=== PATIENT | male | born 1955 | race Caucasian/White ===

== ENCOUNTER → 2021-04-09 11:10 | Outpatient (BNVA) | payer MEDICARE, SELFPAY | PROVIDERS: Visit Provider Urology | DX: N40.0 Benign prostatic hyperplasia without lower urinary tract symptoms (principal); R39.15 Urgency of urination | CPT/HCPCS: 51798; 99212 ==

== ENCOUNTER 2024-01-14 14:44 | Outpatient (REF) | payer MEDICARE, SELFPAY ==
[2024-01-14 15:28] LABS: Prothrombin Time 11.9 SEC (11.1-13.3)
[2024-01-14 16:12] LABS: Anion Gap 13 (12-20); Blood Urea Nitrogen 17 mg/dL (9-16); Calcium 9.7 mg/dL (8.4-10.2); Carbon Dioxide 25 mmol/L (22-29); Chloride 97 mmol/L (96-108); Estimated Glomerular Filt Rate > 60; Glucose Random 179 mg/dL (60-115); Sodium 130 mmol/L (135-145)
== END 2024-01-14 14:45 | disposition home or self-care (01) ==
LOC: HO.LAB 14:44
PROVIDERS: Visit Provider Psychiatry & Neurology Neurology
DX: G91.2 (Idiopathic) normal pressure hydrocephalus (principal)
CPT/HCPCS: 36415; 80048; 85610

== ENCOUNTER 2024-02-05 09:19 | Day surgery (SDC) | payer MEDICARE, SELFPAY ==
--- NOTE | ~2024-02-05 | FL_ITS ---
FLUOROSCOPIC GUIDED LUMBAR PUNCTURE INDICATION: Normal pressure hydrocephalus Risks and benefits and possible complications were discussed with the patient and his daughter and the consent form was signed. Patient was placed prone on the fluoroscopy table. The back was prepped and draped in routine sterile fashion. Betadine was used as a skin antiseptic. Utilizing fluoroscopic guidance, the L5-S1 level interlaminar space was accessed with a 22 gauge Michael spinal needle and pink-tinged CSF fluid was obtained. Opening pressure was 11 cm. Only 3 mL of CSF could be obtained until CSF flow completely stopped despite multiple attempts to reposition the needle. Next, the L4-L5 interlaminar level was accessed with a 22-gauge quincke spinal needle and pink-tinged CSF was obtained. An additional 4.5 mL cc of fluid was sent for analysis. The needle was removed without immediate complications. Total fluoroscopy time: 1 minute 39 seconds FL/FL guided lumbar puncture LP IMPRESSION: Successful fluoroscopic lumbar puncture This procedure was performed by Jese Norris PA-C and supervised by Dr. Aguila.
[2024-02-05 10:03] VITALS: BMI 28.2
[2024-02-05 10:11] LABS: MANUAL DIFF FLAG NO
[2024-02-05 10:14] LABS: Basophils Percent Auto 0.4 % (0-2); Eosinophils Absolute Auto 0.1 X10*3/uL (0.0-0.4); Eosinophils Percent Auto 0.8 % (0-4); Hematocrit 37.8 % (42.0-52.0); Imm Gran Abs Auto 0.03 X10*3/uL (0.00-0.03); Imm Gran Pct Auto 0.4 % (0.0-0.4); Lymphocytes Absolute Auto 0.9 X10*3/uL (1.2-4.9); Lymphocytes Percent Auto 10.7 % (20-40); Mean Corpuscular HGB Conc 34.4 g/dl (31.0-36.0); Mean Corpuscular Volume 87.3 fL (80.0-98.0); Monocytes Absolute Auto 0.7 X10*3/uL (0.1-1.2); Monocytes Percent Auto 8.1 % (2-11); Neutrophils Absolute Auto 6.7 x10*3/uL (2.0-8.3); Neutrophils Percent Auto 79.6 % (45-73); Platelet Count 212 X10*3/uL (160-400); Red Blood Count 4.33 X10*6/uL (4.60-5.80); Red Cell Distribution Width 11.9 % (11.0-16.0); White Blood Count 8.4 X10*3/uL (4.8-10.8)
[2024-02-05 10:37] LABS: Glucose, Whole Blood 162 mg/dL (60-115)
[2024-02-05 13:00] VITALS: BP 129/69; PULSE 74; RESP 17; TEMP 36.6; O2SAT 97
[2024-02-05 13:15] VITALS: BP 154/80; PULSE 72; RESP 18; O2SAT 100
[2024-02-05 13:30] VITALS: BP 152/78; PULSE 72; RESP 18; O2SAT 100
[2024-02-05 13:45] VITALS: BP 154/80; PULSE 71; RESP 18; O2SAT 100
[2024-02-05 13:53] LABS: CSF Appearance Bloody; CSF Tube # 2
[2024-02-05 13:56] VITALS: BP 171/93; PULSE 70; RESP 18; TEMP 36.2; O2SAT 100
[2024-02-05 14:08] LABS: Glucose CSF 105 mg/dL; Total Protein CSF 189.3 mg/dL (15-45)
[2024-02-05 14:25] LABS: Appearance CSF CLOUDY; CSF Monos 1 %; CSF Tube # 4; Color CSF RED; Lymphocytes CSF 11 %; Neutrophils CSF 88 %
[2024-02-05 14:26] LABS: Red Blood Cell CSF 12075 MM*3; White Blood Cell CSF 36 MM*3
--- NOTE | 2024-02-05 14:36 | PC.NURSE ---
this rn recieved call from lab of critical lab value wbc of 36 on patient that was d/c home at 1400. Both Paulo Norris and rebecca Foster notified. I called [place] [facility] left message with office personal and tiger texted dr foster.
== END 2024-02-05 14:00 | disposition home or self-care (01) ==
PROVIDERS: Physician Assistant Surgical; Visit Provider Psychiatry & Neurology Neurology
PROC: 009U3ZZ Drainage of Spinal Canal, Percutaneous Approach (ICD-10-PCS; CPT 62270; principal; 2024-02-05 11:00)
DX: G91.2 (Idiopathic) normal pressure hydrocephalus (principal); E11.9 Type 2 diabetes mellitus without complications
CPT/HCPCS: 36415; 62328; 82945; 82947; 84157; 85025; 87015; 87070; 87205; 89051

== ENCOUNTER → 2024-02-05 11:21 | Outpatient (BNV) | payer MEDICARE, SELFPAY | PROVIDERS: Visit Provider Physician Assistant Surgical | DX: G91.2 (Idiopathic) normal pressure hydrocephalus (principal) | CPT/HCPCS: 62328 ==

== ENCOUNTER 2024-02-08 10:45 | Outpatient (REF) | payer MEDICARE, SELFPAY ==
[2024-02-09 05:05] LABS: Syphilis Screen Nonreactive (Nonreactive)
[2024-02-09 19:58] LABS: Lyme Abs Screen <0.90 index
== END 2024-02-08 10:46 | disposition home or self-care (01) ==
LOC: HO.LAB 10:45
PROVIDERS: Visit Provider Psychiatry & Neurology Neurology
DX: R26.89 Other abnormalities of gait and mobility (principal)
CPT/HCPCS: 36415; 86617; 86618; 86780

== ENCOUNTER 2025-07-27 14:13 | Outpatient (AMB) | payer MEDICARE, SELFPAY ==
--- OUTSIDE RECORDS SUMMARY | 2025-07-23 23:59 | XMS_ITS | Continuity of Care Document ---
Author Organization [facility] y Address [address] [place] [address]- Care Team Providers Care Quantitative Equity Head Name Role Phone Khari Vargas MD Primary Care Physician Encounter [facility] Date(s): 06/23/25 - 07/23/25 [facility] [address] [place], [place] [address] Attending Physician: Deanna Odell Admitting Physician: AdmtrDeanna Referring Physician: Admtr ArLilia Encounter Type: Triage Allergies, Adverse Reactions, Alerts No Known Allergies Immunizations Given and Recorded Vaccine Date Status Refusal Reason SARS-CoV-2 (COVID-19) mRNA BNT-162b2 vac 08/02/21 Given SARS-CoV-2 (COVID-19) mRNA BNT-162b2 vac 07/05/21 Given pneumococcal 23-valent vaccine 04/12/21 Given influenza virus vaccine, inactivated 10/11/20 Tyrell rded influenza virus vaccine, inactivated 11/04/18 Give n influenza virus vaccine, inactivated 10/08/17 Give n influenza virus vaccine, inactivated 09/20/14 Tyrell rded influenza virus vaccine, inactivated 09/16/13 Tyrell rded pneumococcal 13-valent vaccine 03/17/19 Given tetanus/diphtheria/pertussis, acel(Tdap) 11/04/18 Given Medications aspirin 81 mg oral delayed release tablet 81 mg, By Mouth, Daily, do not crush or chew, # 90 tablet, Refills 3, Tot. Refills 3, Maintenance, 01/18/24 1:22:00 PM EST, Route to Pharmacy Electronically, [facility]/pharmacy #[id number], Partial fill upon patient request if the prescription is for a schedule II opioid drug., 178, cm, 01/06/24 9:52:00 EST, Height, 88.5, kg, 01/10/23 18:29:00 EST, Dry Weight Start Date: 01/18/24 Stop Date: 05/17/24 Status: Ordered Quantity: 90.0 Unit: tablet Repeat number: 4 atorvastatin 40 mg oral tablet 1 tablet = 40 mg, By Mouth, Daily, # 90 tablet, 3 Refills, Maintenance, 01/18/24 1:19:00 PM EST, Tablet, [facility]/pharmacy #[id number], Partial fill upon patient request if the prescription is for a schedule II opioid drug., 178, cm, 01/06/24 9:52:00 EST, Height, 88.5, kg, 01/10/23 18:29:00 EST, Dry Weight Start Date: 01/18/24 Status: Ordered Quantity: 90.0 Unit: tablet Repeat number: 4 diclofenac 1% topical gel 1 application, Topically, 4 times a day, # 100 Gm, 2 Refills, Maintenance, 11/09/24 10:04:00 AM EST, Gel, [facility]/pharmacy #[id number], Partial fill upon patient request if the prescription is for a schedule II opioid drug., 178, cm, 10/17/24 15:56:00 EST, Height, 88.5, kg, 01/10/23 18:29:00 EST, Dry Weight Start Date: 11/09/24 Status: Ordered Quantity: 100.0 Unit: g Repeat number: 3 Lidoderm 5% film 2 patch, Topically, Daily, remove patches after 12 hours, # 30 patch, 11 Refills, Maintenance, 04/20/24 1:57:00 PM EDT, Film, [facility]/pharmacy #[id number], Partial fill upon patient request if the prescription is for a schedule II opioid drug., 2 patch Topically Daily,Instr:remove patches after 12 hours, 178,cm, 04/20/24 13:20:00 EDT, Height, 88.5, kg, 01/10/23 18:29:00 EST, Dry Weight Start Date: 04/20/24 Status: Ordered Quantity: 30.0 Unit: patch Repeat number: 12 lisinopril 2.5 mg oral tablet 1, tablet, By Mouth, Daily, # 90 tablet, Refills 0, Tot. Refills 0, Maintenance, 07/22/25 8:55:00 AMEDT, Route to Pharmacy Electronically, [facility]/pharmacy #[id number], 178, cm, 07/21/25 16:57:00 EDT, Height Start Date: 07/22/25 Status: Ordered Quantity: 90.0 Unit: tablet Repeat number: 1 metFORMIN 1000 mg oral tablet 1 tablet, By Mouth, 2 times a day, # 180 tablet, 1 Refills, Maintenance, 01/12/25 12:00:00 PM EST, [id number], 178, cm, 10/17/24 15:56:00 EST, Height Start Date: 01/12/25 Status: Ordered Quantity: 180.0 Unit: tablet Repeat number: 1 Senexon-S 50 mg-8.6 mg oral tablet 2 tablet, By Mouth, Daily at bedtime, PRN IF NEEDED FOR CONSTIPATION, # 60 tablet, 0 Refills, Maintenance, 07/14/24 9:57:00 AM EDT, [id number], 30, TAKE 2 TABLETS BY MOUTH DAILY AT BEDTIME IF NEEDED FOR CONSTIPATION, 178, cm, 04/20/24 13:20:00 EDT, Height, 88.5, kg, 01/10/23 18:29:00 EST, Dry Weight Start Date: 07/14/24 Status: Ordered Quantity: 60.0 Unit: tablet Repeat number: 1 Shower Chair with Back and Arm Handles Shower Chair with Back and Arm Handles, See Instructions, # 1 each, Refills 0, Tot. Refills 0, Maintenance, Use as directed to assist with showering/bathing PT NEEDS TO SIT TO SHOWER RELATED TO RISK OF FALLS Dx: R42, Z74.09 Duration: Lifetime, 12/04/23 10:08:00 AM EST, Supply Start Date: 12/04/23 Status: Ordered Quantity: 1.0 Unit: each Repeat number: 1 Trulicity Pen 0.75 mg/0.5 mL subcutaneous solution 0.5 mL = 0.75 mg, Subcutaneous Injection, Every week, rotate injection sites, # 2 mL, 5 Refills, Maintenance, 07/21/25 6:03:00 PM EDT, Solution, [id number], Partial fill upon patient request if the prescription is for a schedule II opioid drug., 178, cm, 07/21/25 16:57:00 EDT, Height Start Date: 07/21/25 Status: Ordered Quantity: 2.0 Unit: mL Repeat number: 6 Indications: Type 2 diabetes mellitus without complications; Walker Walker, See Instructions, # 1 each, Refills 0, Tot. Refills 0, Maintenance, Use as directed to assist with ambulation Dx: R42, Z74.09 Duration: Lifetime, 12/04/23 10:08:00 AM EST, Supply Start Date: 12/04/23 Status: Ordered Quantity: 1.0 Unit: each Repeat number: 1 Problem List Condition Confirmation Course Effective Dates Status Health Status Informant Testicular abscess Confirmed Active BPH (benign prostatic hyperplasia) Confirmed Active Chronic low back pain Confirmed Active Mixed vascular and neurodegenerative dementia Confirmed Active Diabetes Mellitus Confirmed Active Hx of prostatectomy Confirmed Active History of orchiectomy Confirmed Active HLD (hyperlipidemia) Confirmed Active Neural foraminal stenosis of lumbar spine Confirmed Active Social History Social History Type Response Smoking Status Never (less than 100 in lifetime) entered on: 04/25/21 Sex Sex Representation Male (finding) Patient Care team information Care Team Personnel Name: Layla Hoff RN Position: [facility] SN RN Member Role: Primary Care Nurse Name: Khari Vargas MD Position: [facility] Resident Member Role: PCP Address: [address] [place] [address] Telecom: Name: Stephanie Webb LPN Position: S RN Member Role: Primary Care Nurse Care Team Related Persons Name: NIDIA CHESTER Name: NIDIA CHESTER Name: RUSTAM CHESTER Name: SOPHIA CHESTER Insurance Providers Guarantor name: SHANNON AvokiaDWIGHT Health Plan Information #: 1 Payer: [employer] Payer Identifier: NA Member Number: [id number] Group Number: [id number] Subscriber Identifier: [id number] Relationship to Subscriber: self Coverage Type: Medicare HMO Coverage Verification Date: NA Telecom: NA Address:
--- OUTSIDE RECORDS SUMMARY | 2025-07-23 23:59 | XMS_ITS | Continuity of Care Document ---
Author Organization [facility] Address [address] [place] [address]- Care Team Providers Care Legislative Correspondent Name Role Phone Alicia BLAND, Khari Primary [id number] Date([facility] - 07/23/25 [facility] [address] [place], [place] [address] Attending Physician: Not on Staff, Attending MD Admitting Physician: Not on Staff, Admitting MD Referring Physician: Melania Pritchett MD Encounter Type: Pre-OutPatient One Time Allergies, Adverse Reactions, Alerts No Known Allergies [...] 1:22:00 PM EST, Route to Pharmacy Electronically, [facility]/pharmacy #[id number], Partial fill upon patient request if [...] Refills, Maintenance, 01/18/24 1:19:00 PM EST, Tablet, [facility]/pharmacy #[id number], Partial fill upon patient request if the prescription is for a schedule II opioid drug., 178, cm, 01/06/24 9:52:00 EST, Height, 88.5, kg, 01/10/23 18:29:00 EST, Dry Weight Start Date: 01/18/24 Status: Ordered Quantity: 90.0 Unit: tablet Repeat number: 4 diclofenac 1% topical gel 1 application, Topically, 4 times a day, # 100 Gm, 2 Refills, Maintenance, 11/09/24 10:04:00 AM EST, Gel, [facility]/pharmacy #1130, Partial fill upon patient request if [...] Refills, Maintenance, 04/20/24 1:57:00 PM EDT, Film, [facility]/pharmacy #1130, Partial fill upon patient request if [...] 07/22/25 8:55:00 AMEDT, Route to Pharmacy Electronically, [facility]/pharmacy #[id number], 178, cm, 07/21/25 16:57:00 EDT, Height Start Date: 07/22/25 Status: Ordered Quantity: 90.0 Unit: tablet Repeat number: 1 metFORMIN 1000 mg oral tablet 1 tablet, By Mouth, 2 times a day, # 180 tablet, 1 Refills, Maintenance, 01/12/25 12:00:00 PM EST, [id number], 178, cm, 10/17/24 15:56:00 EST, Height Start Date: 01/12/25 Status: Ordered Quantity: 180.0 Unit: tablet Repeat number: 1 Senexon-S 50 mg-8.6 mg oral tablet 2 tablet, By Mouth, Daily at bedtime, PRN IF NEEDED FOR CONSTIPATION, # 60 tablet, 0 Refills, Maintenance, 07/14/24 9:57:00 AM EDT, [facility], 30, TAKE 2 TABLETS BY MOUTH DAILY [...] Team Personnel Name: Layla Hoff RN Position: [facility] SN RN Member Role: Primary Care Nurse Name: Khari Vargas MD Position: [facility] Resident Member Role: PCP Address: [address] [place] [address] Telecom: Name: Stephanie Webb LPN Position: S RN Member Role: Primary Care Nurse Care Team Related Persons Name: NIDIA CHESTER Name: NIDIA CHESTER Name: RUSTAM CHESTER Name: SOPHIA CHESTER Insurance Providers Guarantor name: SHANNON WALTER Health Plan Information #: 1 Payer: [employer] Payer Identifier: NA Member Number: [id number] Group Number: [id number] Subscriber Identifier: [id number] Relationship to Subscriber: self Coverage Type: Medicare HMO Coverage Verification Date: NA Telecom: NA Address:
--- NOTE | 2025-07-27 14:18 | A.OFFVIS_ITS ---
Intake Visit Reasons: Follow Up Allergies No Known Allergies (No Known Allergies*) Allergy (Verified 04/09/21 11:19) HPI Comments Details: 69 yo man with difficuly walking and balancing, dizziness, forgetfulness, and difficulty controlling urination started around 2021. His daughter stated that he had an LP done at [facility] in 2021 afer which he improved for a little while but he never saw a surgeon afterwards. He contined to [place], had an MRI of brain in Oct and was sent here for consultation.?He had the LP in 2023 but no improvement from it was noted. LP was bloody probably from a traumatic tap, as he was not ill otherwise. He is presenting with chronic back pain and associated neurologic symptoms. The condition has been primarily characterized by persistent back pain radiating to the legs, impairing mobility and leading to an inability to perform routine tasks such as climbing stairs. The intensity and chronic nature of the pain have alleviated his tolerance to standing and sitting, impacting his quality of life. There is an ongoing concern of potential neuropathy, given the radiation of pain and decreased sensation in the legs. Previous treatments with Tylenol and gabapentin were ineffective, and due to his diabetes, caution is necessary with pain management medications that may impact kidney function. The patient is also dealing with depression as a result of his chronic pain. Diagnostic evaluations have included a nerve test, and a brain MRI is scheduled to assess neurological contributors. A back MRI is planned depending on insurance approval. Naproxen has been proposed to help alleviate pain within the constraints of his current medication regimen. [facility] Medical History (Updated 07/27/25 @ 14:29 by Michael Foster MD) Peripheral neuropathy Osteoarthritis Multifactorial gait disorder NPH (normal pressure hydrocephalus) Depression Diabetes mellitus, type II Urinary incontinence Weak urinary stream Hydronephrosis Epididymo-orchitis BPH (benign prostatic hyperplasia) Neurogenic bladder H/O urinary retention Surgical History (Updated 04/09/21 @ 11:21 by KENTRELL Collins) History of surgery Review of Systems Const Details: - Musculoskeletal: Reports chronic back pain with radiation to the legs, affecting mobility. - Neurological: Reports fear of losing sensation in the legs; difficulty standing and walking. - Psychological: Reports feeling very depressed due to the pain. - General: Reports inability to climb stairs. Assessment & Plan Assessment & Plan (1) NPH (normal pressure hydrocephalus): Comment: EMG/NCS LEs at [place] in 2023: b/l lower lumbar rad, mild b/l peroneal neuropathy MRI brain WO at [facility] in Oct 2023: Ventriculomegaly, mild atrophy and mild MVD, pansiusitis [place] [facility] [place]: [place] tinged CSF, WBCs 36 (88% neutrophills), RBCs 45165, Glu 105, Pro 189. Code(s): G91.2 - (Idiopathic) normal pressure hydrocephalus Category: Medical (2) Lumbar radicular pain: Code(s): M54.16 - Radiculopathy, lumbar region Category: Medical Plan Impression: a; NPH, exam worse than before b: Chronic intractable back pain Rec: a: MRI brain WO b: EMG/NCS legs c: Naproxen 500mg 1-2 a day as needed During the visit, I discussed the patient?s chronic back pain and the associated neurologic symptoms, which appear progressively debilitating. It was agreed that Naproxen might help manage pain, though I cautioned about its kidney impact due to the patient's diabetic condition. I have suggested alternative pain management strategies should Naproxen prove unsuitable. Orders: Orders NE nerve conduction velocity Today M54.16 - Radiculopathy, lumbar region NE electromyogram (EMG) Today M54.16 - Radiculopathy, lumbar region MR head/brain wo con Today G91.2 - (Idiopathic) normal pressure hydrocephalus Medications: New naproxen 500 mg PO BID PRN 60 tabs 0RF pain Coding Level of Care Code Est Pt Level 4 (30686) Diagnoses NPH (normal pressure hydrocephalus) G91.2 Lumbar radicular pain M54.16
--- OUTSIDE RECORDS SUMMARY | 2025-07-27 15:00 | XMS_ITS ---
[facility] Care Team Organization Name Specialty Phone Email Start Date End Da te [facility] KOFFI NAILS Primary Care 10/07/2022 07/18/20 24
== END 2025-07-27 14:39 | disposition home or self-care (01) ==
PROVIDERS: Visit Provider Psychiatry & Neurology Neurology
DX: G91.2 (Idiopathic) normal pressure hydrocephalus (principal); M54.16 Radiculopathy, lumbar region
CPT/HCPCS: 99214

== ENCOUNTER → 2025-07-27 14:13 | Outpatient (BNVA) | payer MEDICARE, SELFPAY | PROVIDERS: Visit Provider Psychiatry & Neurology Neurology | DX: G91.2 (Idiopathic) normal pressure hydrocephalus (principal); M54.16 Radiculopathy, lumbar region; R42 Dizziness and giddiness; R26.9 Unspecified abnormalities of gait and mobility | CPT/HCPCS: 99212 ==

== ENCOUNTER 2025-08-02 14:02 | Outpatient (REF) | payer MEDICARE, SELFPAY ==
--- NOTE | 2025-08-02 16:45 | EMG_ITS ---
Chief complaint: Lumbar Radiculopathy Reason for referral: back pain Referred by: Dr Foster Procedure done: Nerve conduction study of the lower extremities with EMG Bilateral tibial and peroneal motor studies were performed bilateral superficial peroneal and sural sensory studies were performed tibial H reflexes were obtained and EMG needle examination was performed. Impression: Moderately severe axonal sensory motor chronic peripheral neuropathy MTDD
== END 2025-08-02 14:03 | disposition home or self-care (01) ==
LOC: HO.NEURO 14:02
PROVIDERS: Visit Provider Psychiatry & Neurology Neurology
DX: M54.16 Radiculopathy, lumbar region (principal); G62.9 Polyneuropathy, unspecified
CPT/HCPCS: 95886; 95911

== ENCOUNTER → 2025-08-02 16:45 | Outpatient (BNV) | payer MEDICARE, SELFPAY | PROVIDERS: Visit Provider Psychiatry & Neurology Neurology | DX: G62.89 Other specified polyneuropathies (principal) | CPT/HCPCS: 95886; 95911 ==

== ENCOUNTER → 2025-08-30 12:31 | Outpatient (BNVA) | payer MEDICARE, SELFPAY | PROVIDERS: Visit Provider Psychiatry & Neurology Neurology | DX: Z71.2 Person consulting for explanation of examination or test findings (principal); M54.16 Radiculopathy, lumbar region; G62.9 Polyneuropathy, unspecified; R26.89 Other abnormalities of gait and mobility | CPT/HCPCS: 99212 ==

== ENCOUNTER → 2025-08-30 12:31 | Outpatient (AMB) | payer MEDICARE, SELFPAY ==
--- NOTE | 2025-08-30 12:54 | A.OFFVIS_ITS ---
Intake Visit Reasons: ncv results Allergies No Known Allergies (No Known Allergies*) Allergy (Verified 04/09/21 11:19) HPI Comments Details: 69 yo man with difficuly walking and balancing, dizziness, forgetfulness, and difficulty controlling urination started around 2021. His daughter stated that he had an LP done at [facility] in 2021 afer which he improved for a little while but he never saw a surgeon afterwards. He contined to [place], had an MRI of brain in Oct and was sent here for consultation.?He had the LP in 2023 but no improvement from it was noted. LP was bloody probably from a traumatic tap, as he was not ill otherwise. [facility] Medical History (Updated 08/30/25 @ 12:59 by Michael Foster MD) Peripheral neuropathy Osteoarthritis Multifactorial gait disorder NPH (normal pressure hydrocephalus) Depression Diabetes mellitus, type II Urinary incontinence Weak urinary stream Hydronephrosis Epididymo-orchitis BPH (benign prostatic hyperplasia) Neurogenic bladder H/O urinary retention Surgical History (Updated 04/09/21 @ 11:21 by KENTRELL Collins) History of surgery Assessment & Plan Assessment & Plan (1) NPH (normal pressure hydrocephalus): Comment: MG/NCS LEs at [facility] in Jun 2024: Mod axonal SM PN EMG/NCS LEs at [facility] in 2023: b/l lower lumbar rad, mild b/l peroneal neuropathy MRI brain WO at [facility] in Oct 2023: Ventriculomegaly, mild atrophy and mild MVD, pansiusitis LP at [facility] in Jan 2024: [place] tinged CSF, WBCs 36 (88% neutrophills), RBCs 68391, Glu 105, Pro 189. Code(s): G91.2 - (Idiopathic) normal pressure hydrocephalus Category: Medical (2) Lumbar radicular pain: Code(s): M54.16 - Radiculopathy, lumbar region Category: Medical (3) Peripheral neuropathy: Code(s): G62.9 - Polyneuropathy, unspecified Category: Medical Qualifiers: Peripheral neuropathy type: polyneuropathy, unspecified Qualified Code(s): G62.9 - Polyneuropathy, unspecified Plan Impression: a: Multifactorial gait disorder b: Moderate SM axonal peripheral neuropathy c: NPH, had an MRI recently at [facility] Rec: a: PT/OT b: F/u in this office in a few weeks when he is better with CD of this [facility] MRI Coding Level of Care Code Tele Est Pt Level 4 (93707) Diagnoses NPH (normal pressure hydrocephalus) G91.2 Lumbar radicular pain M54.16 Peripheral polyneuropathy G62.9 Peripheral neuropathy type: polyneuropathy, unspecified
--- OUTSIDE RECORDS SUMMARY | 2025-08-30 13:52 | XMS_ITS | Clinical Summary ---
Author Organization [address] [facility] Address [address] [place] [address] Phone Care Team Providers Care Supervisor [employer] Name Role Phone Radha Bush MD Primary Care Provider + Encounters Date Type Department Care Team Description 08/30/[address] [facility] - Main Lab [address] [place] [address] Radha Bush MD Weakness; Type 2 diabetes mellitus without complications (CMS/HCC V24, CMS/HCC V28) from Last 3 Months Social History Tobacco Use Types Packs/Day Years Used Date Smoking Tobacco: Never Assessed Sex and Gender Information Value Date Recorded Sex Assigned at Not on file Legal Sex Male 2:37 PM EST Gender Identity Not on file Sexual Orientation Not on file Plan of Treatment Health Maintenance Due Date Last Done Comments Colorectal Cancer Screening: Colonoscopy 1953 Diabetes: Annual Foot Exam 1963 Diabetes: Annual Retina Eye Exam 1963 DTaP,Tdap,and Td Vaccines (1 - Tdap) 1972 Pneumococcal Vaccine: 50+ Ye ars (1 of 2 - PCV) 1972 Zoster Vaccines (1 of 2) 2003 Abdominal Aortic Aneurysm (A AA) Screen 01/17/2023 Cholesterol Screening (Lipid Panel) 01/17/2023 Falls Risk Assessment 01/17/2023 Hepatitis C Screening 01/17/2023 Medicare Annual Wellness Visit 01/17/2023 Social Influencers of Health Screening 01/17/2023 Depression Screening 11/30/2024 COVID-19 Vaccine (1 - 2023-2 5 season) 2025 Influenza Vaccine (#1) 2025 Diabetes: Annual Urine Albumin-Creatinine Ratio (uACR) 08/30/2025 Diabetes: Blood Sugar Contro l Test (HGBA1C) 08/30/2025 08/30/2025 Diabetes: Annual GFR (Glomer ular Filtration Rate) 08/30/2026 08/30/2025 RSV Immunization Adult Patie nts (1 - 1-dose 75+ series) 2028 HIB Vaccines Aged Out No longer eligi ble based on patient's age to complete this topic HPV Vaccines Aged Out No longer eligi ble based on patient's age to complete this topic Hepatitis A Vaccines Aged Out No long er eligible based on patient's age to complete this topic Hepatitis B Vaccines Aged Out No long er eligible based on patient's age to complete this topic IPV Vaccines Aged Out No longer eligi ble based on patient's age to complete this topic MMR Vaccines Aged Out No longer eligi ble based on patient's age to complete this topic Meningococcal ACWY Vaccine Aged Out N o longer eligible based on patient's age to complete this topic Meningococcal B Vaccine Aged Out No l onger eligible based on patient's age to complete this topic RSV Immunization Patients Un bina 20 months Aged Out No longer eligible b ased on patient's age to complete this topic Varicella Vaccines Aged Out No longer eligible based on patient's age to complete this topic Procedures Procedure Name Priority Date/Time Associated Diagnosis Comments HEMOGLOBIN A1C Routine 08/30/2025 5:58 AM EDT Weakness Type 2 diabetes mellitus without complications ([facility] V24, [facility] V28) FOLATE Routine 08/30/2025 5:58 AM EDT Weakness Type 2 diabetes mellitus without complications ([facility] V24, [facility] V28) VITAMIN B12 Routine 08/30/2025 5:58 AM EDT Weakness Type 2 diabetes mellitus without complications ([facility] V24, [facility] V28) THYROID STIMULATING HORMONE WITH REFLEX TO FREE T4 AND FREE T3 Routine 08/30/2025 5:58 AM EDT Weakness Type 2 diabetes mellitus without complications ([facility] V24, [facility] V28) COMPREHENSIVE METABOLIC PANEL Routine 08/30/2025 5:58 AM EDT Weakness Type 2 diabetes mellitus without complications (CMS/HCC V24, CMS/HCC V28) COMPLETE BLOOD COUNT Routine 08/30/2025 5:58 AM EDT Weakness Type 2 diabetes mellitus without complications (CMS/HCC V24, CMS/HCC V28) from Last 3 Months Results * Thyroid stimulating hormone with reflex to free t4 and free t3 (08/30/2025 5:58 AM EDT) Pathologist [facility] TSH 1.22 0.40 - 4.00 mcIU/mL LAB CHEMISTRY METHOD 08/30/2025 12:10 PM EDT [facility] Blood Venous blood specimen / Unknown Venipuncture / Unknown 08/30/2025 5:58 AM EDT 08/30/2025 9:54 AM EDT Radha Bush MD LAB BLOOD ORDERABLES Fin al Result [facility] [address] [place] [address], * (ABNORMAL) Complete blood count (08/30/2025 5:58 AM EDT) Pathologist [facility] WBC 6.5 4.8 - 10.8 K/mcL LAB HEMETOLOGY METHOD 08/30/2025 10:27 AM EDT [facility] RBC 4.00(L) 4.50 - 5.50 M/mcL LAB HEMETOLOGY METHOD 08/30/2025 10:27 AM EDT [facility] Hemoglobin 12.1(L) 13.5 - 17.5 g/dL LAB HEMETOLOGY METHOD 08/30/2025 10:27 AM EDT [facility] Hematocrit 35.4(L) 42.0 - 54.0 % LAB HEMETOLOGY [facility] MCV 88.1 79.0 - 98.0 FL LAB HEMETOLOGY METHOD 08/30/2025 10:27 AM EDT [facility] MCH 30.1 27.0 - 32.0 pcg LAB HEMETOLOGY METHOD 08/30/2025 10:27 AM [facility] MCHC 34.2 32.0 - 37.0 g/dL LAB HEMETOLOGY METHOD 08/30/2025 10:27 AM EDT [facility] RDW 12.6 11.0 - 15.0 % LAB HEMETOLOGY METHOD 08/30/2025 10:27 AM T [facility] Platelets 222 130 - 400 K/mcL LAB HEMETOLOGY METHOD 08/30/2025 10:27 AM [facility] MPV 10.8 7.0 - 11.0 FL LAB HEMETOLOGY METHOD 08/30/2025 10:27 AM [facility] NRBC 0.0 <1.0 % LAB HEMETOLOGY METHOD 08/30/2025 10:27 AM [facility] NRBC Absolute 0.00 <0.10 K/mcL LAB HEMETOLOGY METHOD 08/30/2025 10:27 AM [facility] Blood Venous blood specimen / Unknown Venipuncture / Unknown 08/30/2025 5:58 AM EDT 08/30/2025 9:54 AM EDT us Radha Bush MD LAB BLOOD ORDERABLES Fin al Result [facility] [address] [place] [address], * (ABNORMAL) Hemoglobin A1c (08/30/2025 5:58 AM EDT) Hemoglobin A1C 7.9(H) <6.5 % LAB CHEMISTRY METHOD 08/30/2025 1:37 PM EDT [facility] Mean Bld Glu Estim. 180 mg/dL LAB CHEMISTRY METHOD 08/30/2025 1:37 PM EDT [facility] Blood Venous blood specimen / Unknown Venipuncture / Unknown 08/30/2025 5:58 AM EDT 08/30/2025 9:54 AM EDT Radha Bush MD LAB BLOOD ORDERABLES Fin al Result Performing Organization Address City/[facility]/ZIP Co de Phone Number [facility] [address] [place] [address], [place] [phone] * Folate (08/30/2025 5:58 AM EDT) Folate 11.4 2.8 - 17.0 ng/ml LAB CHEMISTRY METHOD 08/30/2025 11:35 AM EDT [facility] Blood Venous blood specimen / Unknown Venipuncture / Unknown 08/30/2025 5:58 AM EDT 08/30/2025 9:54 AM EDT Radha Bush MD LAB BLOOD ORDERABLES Fin al Result Performing Organization Address City/[facility]/ZIP Co de Phone Number [facility] [address] [place] [address], [place] [phone] * Vitamin B12 (08/30/2025 5:58 AM EDT) Vitamin B-12 621 250 - 900 pcg/mL LAB CHEMISTRY METHOD 08/30/2025 11:35 AM EDT [facility] Blood Venous blood specimen / Unknown Venipuncture / Unknown 08/30/2025 5:58 AM EDT 08/30/2025 9:54 AM EDT Radha Bush MD LAB BLOOD ORDERABLES Fin al Result [facility] [address] [place] [address], * (ABNORMAL) Comprehensive metabolic panel (08/30/2025 5:58 AM EDT) Sodium 132(L) 133 - 145 mmol/L LAB CHEMISTRY METHOD 08/30/2025 11:35 AM [facility] Potassium 4.8 3.5 - 5.5 mmol/L LAB CHEMISTRY METHOD 08/30/2025 11:35 AM [facility] Chloride 98 96 - 110 mmol/L LAB CHEMISTRY METHOD 08/30/2025 11:35 AM [facility] CO2 26 21 - 32 mmol/L LAB CHEMISTRY METHOD 08/30/2025 11:35 AM [facility] Anion Gap 8 3 - 11 LAB CHEMISTRY METHOD 08/30/2025 11:35 AM [facility] Glucose 158(H) 70 - 100 mg/dL LAB CHEMISTRY METHOD 08/30/2025 11:35 AM [facility] BUN 14 5 - 25 mg/dL LAB CHEMISTRY METHOD 08/30/2025 11:35 AM [facility] Creatinine 1.03 0.70 - 1.30 mg/dL LAB CHEMISTRY METHOD 08/30/2025 11:35 AM [facility] eGFR 78 >=60 mL/min/1. 73m2 LAB CHEMISTRY METHOD 08/30/2025 11:35 AM [facility] Comment:Calculation based on the Chronic Kidney Disease Epidemiology Collaboration (CKD-EPI) equation refit without adjustment for race. BUN/Creatinine Ratio 13.6 LAB CHEMISTRY METHOD 08/30/2025 11:35 AM [facility] Calcium 9.3 8.5 - 10.5 mg/dL LAB CHEMISTRY METHOD 08/30/2025 11:35 AM [facility] AST (SGOT) 27 10 - 42 unit/L LAB CHEMISTRY METHOD 08/30/2025 11:35 AM EDT [facility] ALT (SGPT) 58 10 - 60 unit/L LAB CHEMISTRY METHOD 08/30/2025 11:35 AM EDT [facility] Alkaline Phosphatase 85 42 - 121 unit/L LAB CHEMISTRY METHOD 08/30/2025 11:35 AM T [facility] Total Protein 6.5 6.0 - 8.0 g/dL LAB CHEMISTRY METHOD 08/30/2025 11:35 AM EDT [facility] Albumin 3.5 3.2 - 5.0 g/dL LAB CHEMISTRY METHOD 08/30/2025 11:35 AM [facility] Total Bilirubin 0.6 0.0 - 1.4 mg/dL LAB CHEMISTRY METHOD 08/30/2025 11:35 AM T [facility] Blood Venous blood specimen / Unknown Venipuncture / Unknown 08/30/2025 5:58 AM EDT 08/30/2025 9:54 AM EDT Radha Bush MD LAB BLOOD ORDERABLES Fin al Result [facility] [address] [place] [address], from Last 3 Months Insurance [employer] Care Teams Supervisor [employer] Relationship Specialty Start Date End Date Radha Bush MD [address] [address] PCP - General Family Medicine 08/30/25
--- OUTSIDE RECORDS SUMMARY | 2025-08-30 13:53 | XMS_ITS | Encounter Summary ---
Author Organization [facility] Address [address] [place] [address] Care Team Providers Care Nursing Information Systems Coordinator Name Role Phone Rdaha Bush MD Primary Care Provider + Encounter Details Date Type Department Care Team (Late st Contact Info) Description 08/30/2025 Lab Requisition [facility] - Main Lab [address] [facility] [place] [id number] Radha Bush MD [address] [facility] [address] [place], [place] [id number] Weakness; Type 2 diabetes mellitus without complications (CMS/HCC V24, CMS/HCC V28) Social History Tobacco Use Types Packs/Day Years Used Date Smoking Tobacco: Never Assessed Sex and Gender Information Value Date Recorded Sex Assigned at Not on file Legal Sex Male 2:37 PM EST Gender Identity Not on file Sexual Orientation Not on file documented as of this encounter Plan of Treatment Not on file documented as of this encounter Procedures Procedure Name Priority Date/Time Associated Diagnosis Comments THYROID STIMULATING HORMONE WITH REFLEX TO FREE T4 AND FREE T3 Routine 08/30/2025 5:58 AM EDT Weakness Type 2 diabetes mellitus without complications (CMS/HCC V24, CMS/HCC V28) COMPLETE BLOOD COUNT Routine 08/30/2025 5:58 AM EDT Weakness Type 2 diabetes mellitus without complications (CMS/HCC V24, CMS/HCC V28) HEMOGLOBIN A1C Routine 08/30/2025 5:58 AM EDT Weakness Type 2 diabetes mellitus without complications (CMS/HCC V24, CMS/HCC V28) FOLATE Routine 08/30/2025 5:58 AM EDT Weakness Type 2 diabetes mellitus without complications ([facility] V24, [facility] V28) VITAMIN B12 Routine 08/30/2025 5:58 AM EDT Weakness Type 2 diabetes mellitus without complications ([facility] V24, [facility] V28) COMPREHENSIVE METABOLIC PANEL Routine 08/30/2025 5:58 AM EDT Weakness Type 2 diabetes mellitus without complications ([facility] V24, [facility] V28) documented in this encounter Results * (ABNORMAL) Hemoglobin A1c (08/30/2025 5:58 AM EDT) Hemoglobin A1C 7.9(H) <6.5 % LAB CHEMISTRY METHOD 08/30/2025 1:37 PM EDT [facility] Mean Bld Glu Estim. 180 mg/dL LAB CHEMISTRY METHOD 08/30/2025 1:37 PM EDT [facility] Blood Venous blood specimen / Unknown Venipuncture / Unknown 08/30/2025 5:58 AM EDT 08/30/2025 9:54 AM EDT Radha Bush MD LAB BLOOD ORDERABLES Fin al Result [facility] [address] [place] [address], * Folate (08/30/2025 5:58 AM EDT) Folate 11.4 2.8 - 17.0 ng/ml LAB CHEMISTRY METHOD 08/30/2025 11:35 AM EDT [facility] Blood Venous blood specimen / Unknown Venipuncture / Unknown 08/30/2025 5:58 AM EDT 08/30/2025 9:54 AM EDT Radha Bush MD LAB BLOOD ORDERABLES Fin al Result [facility] [address] [place] [address], [place] [phone] * Vitamin B12 (08/30/2025 5:58 AM EDT) Vitamin B-12 621 250 - 900 pcg/mL LAB CHEMISTRY METHOD 08/30/2025 11:35 AM EDT [facility] Blood Venous blood specimen / Unknown Venipuncture / Unknown 08/30/2025 5:58 AM EDT 08/30/2025 9:54 AM EDT Radha Bush MD LAB BLOOD ORDERABLES Fin al Result Performing Organization Address [facility] Co de Phone Number [facility] [address] [place] [address], [place] [phone] * Thyroid stimulating hormone with reflex to free t4 and free t3 (08/30/2025 5:58 AM EDT) Pathologist [facility] TSH 1.22 0.40 - 4.00 mcIU/mL LAB CHEMISTRY METHOD 08/30/2025 12:10 PM EDT [facility] Blood Venous blood specimen / Unknown Venipuncture / Unknown 08/30/2025 5:58 AM EDT 08/30/2025 9:54 AM EDT Radha Bush MD LAB BLOOD ORDERABLES Fin al Result [facility] [address] [place] [address], [place] [phone] * (ABNORMAL) Comprehensive metabolic panel (08/30/2025 5:58 AM EDT) Sodium 132(L) 133 - 145 mmol/L LAB CHEMISTRY METHOD 08/30/2025 11:35 AM [facility] Potassium 4.8 3.5 - 5.5 mmol/L LAB CHEMISTRY METHOD 08/30/2025 11:35 AM [facility] Chloride 98 96 - 110 mmol/L LAB CHEMISTRY METHOD 08/30/2025 11:35 AM [facility] CO2 26 21 - 32 mmol/L LAB CHEMISTRY METHOD 08/30/2025 11:35 AM [facility] Anion Gap 8 3 - 11 LAB CHEMISTRY METHOD 08/30/2025 11:35 AM [facility] Glucose 158(H) 70 - 100 mg/dL LAB CHEMISTRY METHOD 08/30/2025 11:35 AM [facility] BUN 14 5 - 25 mg/dL LAB CHEMISTRY METHOD 08/30/2025 11:35 AM [facility] Creatinine 1.03 0.70 - 1.30 mg/dL LAB CHEMISTRY METHOD 08/30/2025 11:35 AM [facility] eGFR 78 >=60 mL/min/1. 73m2 LAB CHEMISTRY METHOD 08/30/2025 11:35 AM [facility] Comment:Calculation based on the Chronic Kidney Disease Epidemiology Collaboration (CKD-EPI) equation refit without adjustment for race. BUN/Creatinine Ratio 13.6 LAB CHEMISTRY METHOD 08/30/2025 11:35 AM [facility] Calcium 9.3 8.5 - 10.5 mg/dL LAB CHEMISTRY METHOD 08/30/2025 11:35 AM [facility] AST (SGOT) 27 10 - 42 unit/L LAB CHEMISTRY METHOD 08/30/2025 11:35 AM [facility] ALT (SGPT) 58 10 - 60 unit/L LAB CHEMISTRY METHOD 08/30/2025 11:35 AM [facility] Alkaline Phosphatase 85 42 - 121 unit/L LAB CHEMISTRY METHOD 08/30/2025 11:35 AM EDT [facility] Total Protein 6.5 6.0 - 8.0 g/dL LAB CHEMISTRY METHOD 08/30/2025 11:35 AM EDT [facility] Albumin 3.5 3.2 - 5.0 g/dL LAB CHEMISTRY METHOD 08/30/2025 11:35 AM [facility] Total Bilirubin 0.6 0.0 - 1.4 mg/dL LAB CHEMISTRY METHOD 08/30/2025 11:35 AM EDT [facility] Blood Venous blood specimen / Unknown Venipuncture / Unknown 08/30/2025 5:58 AM EDT 08/30/2025 9:54 AM EDT us Radha Bush MD LAB BLOOD ORDERABLES Fin al Result [facility] [address] [place] [address], * (ABNORMAL) Complete blood count (08/30/2025 5:58 AM EDT) WBC 6.5 4.8 - 10.8 K/mcL LAB HEMETOLOGY METHOD 08/30/2025 10:27 AM [facility] RBC 4.00(L) 4.50 - 5.50 M/mcL LAB HEMETOLOGY METHOD 08/30/2025 10:27 AM [facility] Hemoglobin 12.1(L) 13.5 - 17.5 g/dL LAB HEMETOLOGY METHOD 08/30/2025 10:27 AM [facility] Hematocrit 35.4(L) 42.0 - 54.0 % LAB HEMETOLOGY METHOD 08/30/2025 10:27 AM [facility] MCV 88.1 79.0 - 98.0 FL LAB HEMETOLOGY METHOD 08/30/2025 10:27 AM [facility] MCH 30.1 27.0 - 32.0 pcg LAB HEMETOLOGY METHOD 08/30/2025 10:27 AM EDT [facility] MCHC 34.2 32.0 - 37.0 g/dL LAB HEMETOLOGY METHOD 08/30/2025 10:27 AM EDT [facility] RDW 12.6 11.0 - 15.0 % LAB HEMETOLOGY METHOD 08/30/2025 10:27 AM EDT [facility] Platelets 222 130 - 400 K/mcL LAB HEMETOLOGY METHOD 08/30/2025 10:27 AM EDT [facility] MPV 10.8 7.0 - 11.0 FL LAB HEMETOLOGY METHOD 08/30/2025 10:27 AM EDT [facility] NRBC 0.0 <1.0 % LAB HEMETOLOGY METHOD 08/30/2025 10:27 AM EDT [facility] NRBC Absolute 0.00 <0.10 K/mcL LAB HEMETOLOGY METHOD 08/30/2025 10:27 AM T [facility] Blood Venous blood specimen / Unknown Venipuncture / Unknown 08/30/2025 5:58 AM EDT 08/30/2025 9:54 AM EDT us Radha Bush MD LAB BLOOD ORDERABLES Fin al Result [facility] [address] [place] [address], documented in this encounter Visit Diagnoses Diagnosis Weakness Other malaise and fatigue Type 2 diabetes mellitus without complications (CMS/HCC V24, CMS/HCC V28) documented in this encounter Care Teams Nursing Information Systems Coordinator Relationship Specialty Start Date End Date Radha Bush MD [address] [place] [phone] PCP - General Family Medicine 08/30/25 documented as of this encounter
== END ==
LOC: HO.HSM 12:32
PROVIDERS: Visit Provider Psychiatry & Neurology Neurology
DX: G91.2 (Idiopathic) normal pressure hydrocephalus (principal); M54.16 Radiculopathy, lumbar region; G62.9 Polyneuropathy, unspecified
CPT/HCPCS: 99214